=== PATIENT | female | born 2000 | race Two or more races ===

== ENCOUNTER 2019-03-29 16:37 | Inpatient (IN) | payer BC, MEDICAID ==
[~2019-03-29] VITALS: Ht 172.7 cm; Wt 62.6 kg
[2019-03-29 17:40] LABS: BASOPHILS % (AUTO) 0.3 % (0.0-2.0); EOSINOPHILS % (AUTO) 0.8 % (1.0-6.0); HEMATOCRIT 40.4 % (36-46); LYMPHOCYTES # (AUTO) 1.7 K/uL (1.0-4.8); LYMPHOCYTES % (AUTO) 16.5 % (22.0-44.0); MEAN CORPUSCULAR HEMOGLOBIN 31.3 pg (26.0-34.0); MEAN CORPUSCULAR HGB CONC 34.5 G/dL (31.0-37.0); MEAN CORPUSCULAR VOLUME 91 fL (80-100); MONOCYTES # (AUTO) 0.6 K/uL (0.1-1.0); MONOCYTES % (AUTO) 5.9 % (2.0-9.0); NEUTROPHILS # (AUTO) 8.1 K/uL (1.8-7.7); NEUTROPHILS % (AUTO) 76.5 % (40.0-70.0); PLATELET COUNT (AUTO) 285 K/uL (150-450); RED BLOOD CELL COUNT(AUTO) 4.47 MIL/uL (4.00-5.20); RED CELL DISTRIBUTION WIDTH 12.6 % (11.5-14.5)
[2019-03-29 17:57] LABS: ANION GAP 8 mmol/L (8-16); CALCIUM, TOTAL 8.6 mg/dL (8.8-10.5); CARBON DIOXIDE 28 mmol/L (22-29); CHLORIDE 100 mmol/L (98-107); CREATININE 0.65 mg/dL (0.60-1.30); GLOMERULAR FILTR. RATE CALC > 60 mL/min (>60); GLUCOSE,RANDOM 85 mg/dL (70-110); POTASSIUM 4.3 mmol/L (3.5-5.1); SODIUM SERUM 136 mmol/L (136-145); UREA NITROGEN, BLOOD 15 mg/dL (7-18)
[2019-03-29 18:01] LABS: ALANINE AMINOTRANSFERASE 14 U/L (12-78); ALBUMIN 4.1 g/dL (3.4-5.0); ALKALINE PHOSPHATASE 74 U/L (46-116); ASPARTATE AMINOTRANSFERASE 12 U/L (15-37); BILIRUBIN,TOTAL 0.2 mg/dL (0.1-1.0); HCG,QUANTITATIVE < 1 mIU/mL (0-6); TOTAL PROTEIN, SERUM 7.8 g/dL (6.4-8.2)
[2019-03-29 18:02] LABS: ACETAMINOPHEN < 2 mcg/mL (10-30)
[2019-03-29 18:28] LABS: SALICYLATE < 2.8 mg/dL (2.8-20.0)
[2019-03-29] MEDS ORDERED: VENL-68 PO (19:10)
[2019-03-29] MEDS ORDERED: SPIR50 PO (19:10)
[2019-03-29] MEDS ORDERED: CHARCOAL/SORBITOL 50 GM/240 ML SUSPENSION PO ONE (19:15)
[2019-03-29] MEDS ORDERED: PEG 3350/NA SULF,BICARB,CL/KCL 4000 ML SOLUTION PO ONE (19:15)
[2019-03-29] MEDS ORDERED: BUPIVACAINE HCL/PF 0.25% 10 ML VIAL INJ ONE (20:15)
[2019-03-29] MEDS ORDERED: CEPHALEXIN MONOHYDRATE 500 MG CAPSULE PO ONE (21:00)
[2019-03-29] MEDS ORDERED: BACITRACIN 0.9 GM PACKET OINTMENT TP ONE (21:00)
[2019-03-29] MEDS ORDERED: SPIRONOLACTONE 50 MG TABLET PO ONE (21:00)
[2019-03-29 21:09] LABS: AMPHET/METH SCREEN,URINE NEGATIVE (NEGATIVE); BARBITURATE SCREEN, URINE NEGATIVE (NEGATIVE); BENZODIAZEPINES SCREEN,URINE NEGATIVE (NEGATIVE); CANNABINOID SCREEN,URINE NEGATIVE (NEGATIVE); COCAINE SCREEN,URINE NEGATIVE (NEGATIVE); METHADONE SCREEN, URINE NEGATIVE (NEGATIVE); OPIATE SCREEN,URINE NEGATIVE (NEGATIVE); PHENCYCLIDINE SCREEN,URINE NEGATIVE (NEGATIVE)
[2019-03-29] MEDS ORDERED: ZOLPIDEM TARTRATE 10 MG TABLET PO PRN (21:30)
[2019-03-29] MEDS ORDERED: LORazepam 2 MG TABLET PO PRN (21:30)
[2019-03-29] MEDS ORDERED: HALOPERIDOL 5 MG TABLET PO PRN (21:30)
[2019-03-29 21:49] LABS: APPEARANCE,URINE CLEAR (CLEAR); BILIRUBIN,URINE NEGATIVE (NEGATIVE); GLUCOSE, URINE (UA) NEGATIVE (NEGATIVE); KETONES,URINE TRACE mg/dL (NEGATIVE); LEUKOCYTE ESTERASE ,URINE NEGATIVE (NEGATIVE); NITRATE,URINE NEGATIVE (NEGATIVE); OCCULT BLOOD,URINE NEGATIVE (NEGATIVE); PROTEIN,URINE NEGATIVE (NEGATIVE); UROBILINOGEN,URINE 0.2 mg/dL (<=1.0)
[2019-03-30 03:14] VITALS: BP 113/81
[2019-03-30 03:39] VITALS: BP 113/81
[2019-03-30] MEDS ORDERED: INFLUENZA VIRUS VACCINE QVS 2019-20 (3YR+)/PF 60 MCG/0.5 ML SYRINGE IM ONE (05:45)
[2019-03-30 06:33] LABS: CHOL/HDL RATIO 1.9 (3.9-5.7)
[2019-03-30 08:12] VITALS: BP 125/72
[2019-03-30] MEDS ORDERED: ESTR20VI4 IM (10:36)
[2019-03-30] MEDS ORDERED: QUET25TA PO (10:44)
[2019-03-30] MEDS: SPIRONOLACTONE 50 MG TABLET PO SCH ×2 (11:48→17:24)
[2019-03-30] MEDS ORDERED: ESTR-95 PO (14:42)
[2019-03-30] MEDS: ESTRADIOL 1 MG TABLET PO SCH (17:25)
[2019-03-30 19:21] VITALS: BP 109/72
[2019-03-31] MEDS: ESTRADIOL 1 MG TABLET PO SCH ×2 (06:51→12:17)
[2019-03-31] MEDS: SPIRONOLACTONE 50 MG TABLET PO SCH (06:51)
[2019-03-31 06:53] LABS: ACETAMINOPHEN < 2 mcg/mL (10-30); SALICYLATE 0.4 mg/dL (2.8-20.0)
[2019-03-31 10:13] VITALS: BP 131/83
== END 2019-03-31 15:20 | disposition home or self-care (01) | DRG 885 ==
LOC: EMS 16:45 → 3EI 22:35
PROVIDERS: ADMIT Psychiatry & Neurology Psychiatry; ATTEND Psychiatry & Neurology Psychiatry
DX: F25.9 Schizoaffective disorder, unspecified (principal); F32.9 Major depressive disorder, single episode, unspecified; F84.0 Autistic disorder; G44.209 Tension-type headache, unspecified, not intractable; L03.039 Cellulitis of unspecified toe; T43.222A Poisoning by selective serotonin reuptake inhibitors, intentional self-harm, initial encounter; Y92.89 Other specified places as the place of occurrence of the external cause; R00.0 Tachycardia, unspecified
CPT/HCPCS: 10060; 93005; G0480; G0481; J3490

== ENCOUNTER 2020-04-10 12:01 | Emergency (ER) | payer BC, OTHER ==
[~2020-04-10] VITALS: Ht 172.7 cm; Wt 83.6 kg
[~2020-04-10 12:01] MED LIST: SPIR50 PO
[2020-04-10 12:51] LABS: COVID AG,FIA SOURCE NASOPHARYNGEAL
[2020-04-10 13:02] LABS: BASOPHILS % (AUTO) 0.4 % (0.0-2.0); EOSINOPHILS % (AUTO) 0.3 % (1.0-6.0); HEMATOCRIT 37.2 % (36-46); HEMOGLOBIN 12.9 g/dL (12.0-16.0); LYMPHOCYTES # (AUTO) 1.2 K/uL (1.0-4.8); LYMPHOCYTES % (AUTO) 17.1 % (22.0-44.0); MEAN CORPUSCULAR HEMOGLOBIN 31.1 pg (26.0-34.0); MEAN CORPUSCULAR HGB CONC 34.5 G/dL (31.0-37.0); MEAN CORPUSCULAR VOLUME 90 fL (80-100); MONOCYTES # (AUTO) 0.4 K/uL (0.1-1.0); MONOCYTES % (AUTO) 5.8 % (2.0-9.0); NEUTROPHILS # (AUTO) 5.4 K/uL (1.8-7.7); NEUTROPHILS % (AUTO) 76.4 % (40.0-70.0); PLATELET COUNT (AUTO) 250 K/uL (150-450); RED BLOOD CELL COUNT(AUTO) 4.13 MIL/uL (4.00-5.20); RED CELL DISTRIBUTION WIDTH 13.3 % (11.5-14.5)
[2020-04-10 13:03] LABS: AMPHET/METH SCREEN,URINE NEGATIVE (NEGATIVE); BARBITURATE SCREEN, URINE NEGATIVE (NEGATIVE); BENZODIAZEPINES SCREEN,URINE NEGATIVE (NEGATIVE); CANNABINOID SCREEN,URINE NEGATIVE (NEGATIVE); COCAINE SCREEN,URINE NEGATIVE (NEGATIVE); METHADONE SCREEN, URINE NEGATIVE (NEGATIVE); OPIATE SCREEN,URINE NEGATIVE (NEGATIVE)
[2020-04-10 13:04] LABS: PHENCYCLIDINE SCREEN,URINE NEGATIVE (NEGATIVE)
[2020-04-10 13:13] LABS: ANION GAP 4 mmol/L (8-16); CALCIUM, TOTAL 8.7 mg/dL (8.8-10.5); CARBON DIOXIDE 32 mmol/L (22-29); CHLORIDE 101 mmol/L (98-107); CREATININE 0.77 mg/dL (0.60-1.30); GLOMERULAR FILTR. RATE CALC > 60 mL/min (>60); GLUCOSE,RANDOM 105 mg/dL (70-110); SODIUM SERUM 137 mmol/L (136-145); UREA NITROGEN, BLOOD 6 mg/dL (7-18)
[2020-04-10 13:20] LABS: ALANINE AMINOTRANSFERASE 20 U/L (12-78); ALBUMIN 4.2 g/dL (3.4-5.0); ALKALINE PHOSPHATASE 53 U/L (46-116); ASPARTATE AMINOTRANSFERASE 16 U/L (15-37); BILIRUBIN,TOTAL 0.3 mg/dL (0.1-1.0); TOTAL PROTEIN, SERUM 7.6 g/dL (6.4-8.2)
[2020-04-10 16:38] VITALS: BP 119/86
== END 2020-04-10 16:45 | disposition home or self-care (01) ==
LOC: EMS 12:04
DX: F32.9 Major depressive disorder, single episode, unspecified (principal); Z88.8 Allergy status to other drugs, medicaments and biological substances; Z20.828 Contact with and (suspected) exposure to other viral communicable diseases
CPT/HCPCS: 36415; 80053; 80307; 85025; 87426; 99285; G0480

== ENCOUNTER 2020-06-10 15:22 | Inpatient (IN) | payer BC, MEDICAID ==
[~2020-06-10] VITALS: Ht 175.3 cm; Wt 68.4 kg
[2020-06-10] MEDS ORDERED: PROG200C11 PO (15:42)
[2020-06-10] MEDS ORDERED: ESTRADIOL PO (15:42)
[2020-06-10] MEDS ORDERED: SPIR50 PO (15:42)
[2020-06-10] MEDS ORDERED: VENL-53 PO (15:42)
[2020-06-10] MEDS ORDERED: QUET25TA PO (15:42)
[2020-06-10] MEDS ORDERED: FINA-27 PO (15:42)
[2020-06-10 19:17] LABS: COVID AG,FIA SOURCE NASOPHARYNGEAL
[2020-06-10 19:42] LABS: BASOPHILS % (AUTO) 0.4 % (0.0-2.0); EOSINOPHILS % (AUTO) 0.2 % (1.0-6.0); HEMATOCRIT 39.5 % (36-46); HEMOGLOBIN 13.7 g/dL (12.0-16.0); MEAN CORPUSCULAR HEMOGLOBIN 31.2 pg (26.0-34.0); MEAN CORPUSCULAR HGB CONC 34.8 G/dL (31.0-37.0); MEAN CORPUSCULAR VOLUME 90 fL (80-100); MONOCYTES # (AUTO) 0.3 K/uL (0.1-1.0); MONOCYTES % (AUTO) 4.4 % (2.0-9.0); NEUTROPHILS # (AUTO) 5.4 K/uL (1.8-7.7); PLATELET COUNT (AUTO) 255 K/uL (150-450); RED BLOOD CELL COUNT(AUTO) 4.41 MIL/uL (4.00-5.20); RED CELL DISTRIBUTION WIDTH 13.3 % (11.5-14.5)
[2020-06-10 19:57] LABS: ANION GAP 6 mmol/L (8-16); CARBON DIOXIDE 30 mmol/L (22-29); CHLORIDE 101 mmol/L (98-107); CREATININE 0.86 mg/dL (0.60-1.30); GLOMERULAR FILTR. RATE CALC > 60 mL/min (>60); GLUCOSE,RANDOM 85 mg/dL (70-110); POTASSIUM 4.1 mmol/L (3.5-5.1); SODIUM SERUM 137 mmol/L (136-145); UREA NITROGEN, BLOOD 10 mg/dL (7-18)
[2020-06-10 20:04] LABS: ALANINE AMINOTRANSFERASE 23 U/L (12-78); ALBUMIN 4.6 g/dL (3.4-5.0); ALKALINE PHOSPHATASE 64 U/L (46-116); ASPARTATE AMINOTRANSFERASE 24 U/L (15-37); BILIRUBIN,TOTAL 0.4 mg/dL (0.1-1.0); TOTAL PROTEIN, SERUM 8.5 g/dL (6.4-8.2)
[2020-06-10 20:45] LABS: AMPHET/METH SCREEN,URINE NEGATIVE (NEGATIVE); BARBITURATE SCREEN, URINE NEGATIVE (NEGATIVE); BENZODIAZEPINES SCREEN,URINE NEGATIVE (NEGATIVE); CANNABINOID SCREEN,URINE NEGATIVE (NEGATIVE); COCAINE SCREEN,URINE NEGATIVE (NEGATIVE); METHADONE SCREEN, URINE NEGATIVE (NEGATIVE); OPIATE SCREEN,URINE NEGATIVE (NEGATIVE)
[2020-06-10 20:47] LABS: PHENCYCLIDINE SCREEN,URINE NEGATIVE (NEGATIVE)
[2020-06-10] MEDS ORDERED: QUEtiapine FUMARATE 25 MG TABLET PO ONE (21:15)
[2020-06-11 05:52] VITALS: BP 118/90
[2020-06-11] MEDS ORDERED: MAG HYDROX/AL HYDROX/SIMETH ES 30 ML SUSPENSION UDCUP PO PRN (08:15)
[2020-06-11] MEDS ORDERED: TUBERCULIN, PURIFIED PROTEIN DERIVATIVE 5 TU/0.1 ML SYRINGE ID ONE (08:15)
[2020-06-11] MEDS ORDERED: ZOLPIDEM TARTRATE 10 MG TABLET PO PRN (08:15)
[2020-06-11] MEDS ORDERED: LOPERAMIDE HCL 2 MG CAPSULE PO PRN (08:15)
[2020-06-11] MEDS ORDERED: HydrOXYzine PAMOATE 50 MG CAPSULE PO PRN (08:15)
[2020-06-11] MEDS ORDERED: ACETAMINOPHEN 325 MG TABLET PO PRN (08:15)
[2020-06-11] MEDS ORDERED: LORazepam 2 MG TABLET PO PRN (08:15)
[2020-06-11] MEDS ORDERED: MAGNESIUM HYDROXIDE SUSPENSION 30 ML UDCUP PO PRN (08:15)
[2020-06-11] MEDS ORDERED: OLANZapine 5 MG RAPDIS TABLET PO PRN (08:15)
[2020-06-11] MEDS ORDERED: PROMETHAZINE HCL 25 MG TABLET PO PRN (08:15)
[2020-06-11] MEDS ORDERED: GuaiFENesin/D-METHORPHAN [SUGAR-FREE] 200-20MG/10 ML SYRUP UDCUP PO PRN (08:15)
[2020-06-11] MEDS: FOLIC ACID 1 MG TABLET PO SCH (08:53)
[2020-06-11] MEDS: MULTIVITAMINS WITH MINERALS, THERAPEUTIC TABLET PO SCH (08:53)
[2020-06-11] MEDS: OMEGA-3/DHA/EPA/FISH OIL 1,000 MG CAPSULE PO SCH (08:53)
[2020-06-11] MEDS: NALTREXONE HCL 50 MG TABLET PO SCH (08:53)
[2020-06-11] MEDS: THIAMINE 100 MG TABLET PO SCH ×2 (08:53→17:08)
[2020-06-11] MEDS ORDERED: ESTR2TAB5 PO (11:12)
[2020-06-11] MEDS: FINASTERIDE 5 MG TABLET PO SCH (12:50)
[2020-06-11] MEDS: SPIRONOLACTONE 50 MG TABLET PO SCH ×2 (12:50→17:18)
[2020-06-11] MEDS: ESTRADIOL 1 MG TABLET PO SCH ×2 (12:50→17:08)
[2020-06-11] MEDS: OLANZapine 5 MG RAPDIS TABLET PO SCH (20:26)
[2020-06-11] MEDS: MELATONIN 5 MG TABLET PO SCH (20:26)
[2020-06-11] MEDS: PROGESTERONE, MICRONIZED 100 MG CAPSULE PO SCH (20:26)
[2020-06-11] MEDS: DIVALPROEX SODIUM 250 MG ER TABLET PO SCH (20:27)
[2020-06-11] MEDS ORDERED: PROGESTERONE 50 MG/ML IM SCH ×2 (21:00)
[2020-06-12 01:25] VITALS: BP 110/84
[2020-06-12] MEDS: ESTRADIOL 1 MG TABLET PO SCH ×2 (08:59→17:28)
[2020-06-12] MEDS: NALTREXONE HCL 50 MG TABLET PO SCH (08:59)
[2020-06-12] MEDS: FOLIC ACID 1 MG TABLET PO SCH (08:59)
[2020-06-12] MEDS: THIAMINE 100 MG TABLET PO SCH ×2 (08:59→17:28)
[2020-06-12] MEDS: FINASTERIDE 5 MG TABLET PO SCH (08:59)
[2020-06-12] MEDS: SPIRONOLACTONE 50 MG TABLET PO SCH ×2 (08:59→17:28)
[2020-06-12] MEDS: OMEGA-3/DHA/EPA/FISH OIL 1,000 MG CAPSULE PO SCH (08:59)
[2020-06-12] MEDS: MULTIVITAMINS WITH MINERALS, THERAPEUTIC TABLET PO SCH (08:59)
[2020-06-12] MEDS ORDERED: ZOLPIDEM TARTRATE 5 MG TABLET PO PRN (14:15)
[2020-06-12 16:11] VITALS: BP 111/54
[2020-06-12] MEDS ORDERED: LORazepam 1 MG TABLET PO PRN (16:15)
[2020-06-12] MEDS: PROGESTERONE, MICRONIZED 100 MG CAPSULE PO SCH (20:32)
[2020-06-12] MEDS: DIVALPROEX SODIUM 250 MG ER TABLET PO SCH (20:32)
[2020-06-12] MEDS: OLANZapine 5 MG RAPDIS TABLET PO SCH (20:32)
[2020-06-12] MEDS: MELATONIN 5 MG TABLET PO SCH (20:33)
[2020-06-13 01:17] VITALS: BP 104/66
[2020-06-13 08:15] VITALS: BP 118/69
[2020-06-13] MEDS: ESTRADIOL 1 MG TABLET PO SCH ×2 (08:37→16:35)
[2020-06-13] MEDS: SPIRONOLACTONE 50 MG TABLET PO SCH ×2 (08:37→16:35)
[2020-06-13] MEDS: FINASTERIDE 5 MG TABLET PO SCH (08:37)
[2020-06-13] MEDS: THIAMINE 100 MG TABLET PO SCH ×2 (08:38→16:35)
[2020-06-13] MEDS: FOLIC ACID 1 MG TABLET PO SCH (08:38)
[2020-06-13] MEDS: MULTIVITAMINS WITH MINERALS, THERAPEUTIC TABLET PO SCH (08:38)
[2020-06-13] MEDS: NALTREXONE HCL 50 MG TABLET PO SCH (08:38)
[2020-06-13] MEDS: OMEGA-3/DHA/EPA/FISH OIL 1,000 MG CAPSULE PO SCH (08:38)
[2020-06-13 09:53] LABS: CHOL/HDL RATIO 2.1 (3.9-5.7); FREE T4 (FREE THYROXINE) 1.13 ng/dL (0.76-1.46); THYROID STIMULATING HORMONE 2.4 uIU/mL (0.36-3.74)
[2020-06-13] MEDS ORDERED: DIVA-85 PO (13:30)
[2020-06-13] MEDS ORDERED: NALT50TA PO (13:30)
[2020-06-13] MEDS ORDERED: MELA5TAB3 PO (13:30)
[2020-06-13] MEDS ORDERED: OMEG-135 PO (13:30)
[2020-06-13] MEDS ORDERED: OLAN5TAB30 PO (13:30)
[2020-06-13 16:08] VITALS: BP 123/61
[2020-06-13] MEDS: DIVALPROEX SODIUM 250 MG ER TABLET PO SCH (20:36)
[2020-06-13] MEDS: OLANZapine 5 MG RAPDIS TABLET PO SCH (20:37)
[2020-06-13] MEDS: MELATONIN 5 MG TABLET PO SCH (20:37)
[2020-06-13] MEDS: PROGESTERONE, MICRONIZED 100 MG CAPSULE PO SCH (20:37)
[2020-06-14 00:41] VITALS: BP 120/72
[2020-06-14 08:19] VITALS: BP 124/83
[2020-06-14] MEDS: FINASTERIDE 5 MG TABLET PO SCH (08:40)
[2020-06-14] MEDS: THIAMINE 100 MG TABLET PO SCH ×2 (08:40→15:55)
[2020-06-14] MEDS: NALTREXONE HCL 50 MG TABLET PO SCH (08:40)
[2020-06-14] MEDS: OMEGA-3/DHA/EPA/FISH OIL 1,000 MG CAPSULE PO SCH (08:40)
[2020-06-14] MEDS: FOLIC ACID 1 MG TABLET PO SCH (08:40)
[2020-06-14] MEDS: ESTRADIOL 1 MG TABLET PO SCH ×2 (08:40→15:55)
[2020-06-14] MEDS: MULTIVITAMINS WITH MINERALS, THERAPEUTIC TABLET PO SCH (08:40)
[2020-06-14] MEDS: SPIRONOLACTONE 50 MG TABLET PO SCH ×2 (08:41→15:55)
[2020-06-14 16:06] VITALS: BP 124/76
== END 2020-06-14 17:15 | disposition home or self-care (01) | DRG 885 ==
LOC: EMS 15:22 → B3A 22:00
PROVIDERS: ADMIT Psychiatry & Neurology Psychiatry; ATTEND Psychiatry & Neurology Psychiatry
DX: F25.9 Schizoaffective disorder, unspecified (principal); F84.0 Autistic disorder; F64.9 Gender identity disorder, unspecified; Z20.822 Contact with and (suspected) exposure to COVID-19; Z88.8 Allergy status to other drugs, medicaments and biological substances
CPT/HCPCS: 83036; 84439; 84443; 86592; 87426; 99285; A9575; G0480; J2675

== ENCOUNTER 2023-04-02 18:50 | Emergency (ER) | payer MEDICARE, BC, MEDICAID ==
[~2023-04-02] VITALS: Ht 175.3 cm; Wt 116.4 kg
[~2023-04-02 18:50] MED LIST changes: +DIVA-85 PO; +ESTR2TAB5 PO; +FINA-27 PO; +MELA5TAB40 PO; +NALT50TA PO; +OLAN5TAB30 PO; +OMEG-135 PO; +PROG200C11 PO; -SPIR50 PO; +SPIR50TA27 PO
[2023-04-02 18:57] VITALS: TEMP 98.2
[2023-04-02] MEDS ORDERED: FLUO20CA36 PO ×2 (19:02→21:50)
[2023-04-02] MEDS ORDERED: SPIR100T5 PO (19:02)
[2023-04-02] MEDS ORDERED: HYDR50CA6 PO (19:02)
[2023-04-02 19:20] LABS: GLUCOMETER DEV NAME(LOC) ERT.5; GLUCOSE,POINT OF CARE 80 MG/DL (70-110)
[2023-04-02] MEDS ORDERED: QUET100T PO (21:50)
[2023-04-02] MEDS ORDERED: DIVA500T53 PO (21:50)
[2023-04-02 22:00] VITALS: BP 154/90; PULSE 88; RESP 16
[2023-04-02] MEDS ORDERED: QUEtiapine FUMARATE 100 MG TABLET PO ONE (22:00)
[2023-04-02] MEDS ORDERED: LORazepam 1 MG TABLET PO ONE (22:00)
== END 2023-04-02 22:35 | disposition home or self-care (01) ==
LOC: EMS 19:34
DX: F31.9 Bipolar disorder, unspecified (principal); F41.9 Anxiety disorder, unspecified
CPT/HCPCS: 82962; 99283

== ENCOUNTER 2025-03-17 20:43 | Inpatient (IN) | payer MEDICARE, BC, MEDICAID ==
[~2025-03-17] VITALS: Ht 175.3 cm; Wt 94.0 kg
[~2025-03-17 20:43] MED LIST changes: +DIVA-153 PO; -DIVA-85 PO; -ESTR2TAB5 PO; +FLUO-418 PO; -MELA5TAB40 PO; -NALT50TA PO; +OLAN10TA74 PO; -OLAN5TAB30 PO; -OMEG-135 PO; -PROG200C11 PO; +SPIR50TA PO; -SPIR50TA27 PO; +[UNRECOGNIZED DRUG - CODE] TD
[2025-03-17 21:19] VITALS: O2SAT 98
[2025-03-17 21:25] LABS: COVID AG,FIA SOURCE NASAL SWAB
[2025-03-17 21:27] LABS: PLATELET COUNT (AUTO) 271 K/uL (150-450); RED BLOOD CELL COUNT(AUTO) 4.30 MIL/uL (4.00-5.20); RED CELL DISTRIBUTION WIDTH 14.2 % (11.5-14.5); WHITE BLOOD COUNT (AUTO) 9.3 K/uL (4.5-11.0)
[2025-03-17 21:34] LABS: CALCIUM, TOTAL 8.6 mg/dL (8.8-10.5); CREATININE 0.82 mg/dL (0.60-1.30); GLOMERULAR FILTR. RATE CALC > 60 mL/min (>60); GLUCOSE,RANDOM 88 mg/dL (70-110); SODIUM SERUM 136 mmol/L (136-145); UREA NITROGEN, BLOOD 9 mg/dL (7-18)
[2025-03-17 21:42] LABS: SARS-COV2 (COVID) ANTIGEN,FIA Negative (Negative)
[2025-03-18] MEDS ORDERED: PETROLATUM,WHITE 28 GM JELLY TP PRN (01:00)
[2025-03-18] MEDS ORDERED: ONDANSETRON 4 MG TABLET PO PRN (01:00)
[2025-03-18] MEDS ORDERED: MAG HYDROX/ALUMINUM HYD/SIMETH ES 30 ML SUSPENSION UDCUP PO PRN (01:00)
[2025-03-18] MEDS ORDERED: DOCUSATE SODIUM 100 MG CAPSULE PO PRN (01:00)
[2025-03-18] MEDS ORDERED: MAGNESIUM HYDROXIDE SUSPENSION 30 ML UDCUP PO PRN (01:00)
[2025-03-18] MEDS ORDERED: ALBUTEROL SULFATE HFA 90 MCG/PUFF 8 GM INHALER IH PRN (01:00)
[2025-03-18] MEDS ORDERED: LOPERAMIDE HCL 2 MG CAPSULE PO PRN (01:00)
[2025-03-18] MEDS ORDERED: ACETAMINOPHEN 325 MG TABLET PO PRN (01:00)
[2025-03-18] MEDS ORDERED: IBUPROFEN 400 MG TABLET PO PRN (01:00)
[2025-03-18] MEDS ORDERED: GuaiFENesin/D-METHORPHAN [SUGAR-FREE] 200-20MG/10 ML SYRUP UDCUP PO PRN (01:00)
[2025-03-18] MEDS ORDERED: NICOTINE 14 MG/24 HOUR PATCH TD PRN (01:00)
[2025-03-18 01:57] VITALS: BP 127/84; PULSE 80; RESP 18; TEMP 98.2; O2SAT 99
[2025-03-18] MEDS: SPIRONOLACTONE 50 MG TABLET PO SCH (08:04)
[2025-03-18 09:56] VITALS: BP 122/96; PULSE 98; RESP 18; TEMP 97.6; O2SAT 98
[2025-03-18] MEDS: DIVALPROEX SODIUM 500 MG ER TABLET PO SCH (16:35)
[2025-03-18 20:21] VITALS: BP 105/65; PULSE 97; RESP 18; TEMP 97.3; O2SAT 100
[2025-03-18] MEDS: ZOLPIDEM TARTRATE 10 MG TABLET PO PRN (21:18)
[2025-03-19 08:33] LABS: PLATELET COUNT (AUTO) 222 K/uL (150-450); RED BLOOD CELL COUNT(AUTO) 4.35 MIL/uL (4.00-5.20); RED CELL DISTRIBUTION WIDTH 13.7 % (11.5-14.5); WHITE BLOOD COUNT (AUTO) 6.9 K/uL (4.5-11.0)
[2025-03-19 09:06] LABS: ASPARTATE AMINOTRANSFERASE 16 U/L (15-37); CALCIUM, TOTAL 7.9 mg/dL (8.8-10.5); CREATININE 1.02 mg/dL (0.60-1.30); GLOMERULAR FILTR. RATE CALC > 60 mL/min (>60); GLUCOSE,RANDOM 119 mg/dL (70-110); SODIUM SERUM 138 mmol/L (136-145); TOTAL PROTEIN, SERUM 6.8 g/dL (6.4-8.2); UREA NITROGEN, BLOOD 12 mg/dL (7-18)
[2025-03-19 09:07] LABS: CHOL/HDL RATIO 2.9 (3.9-5.7); LDL CHOL (CALC.) 48.0 mg/dL (0-130)
[2025-03-19 10:13] VITALS: BP 126/84; PULSE 98; RESP 17; TEMP 98.2; O2SAT 98
[2025-03-19 20:03] VITALS: BP 111/78; PULSE 63; RESP 16; TEMP 97.6; O2SAT 100
[2025-03-20 08:59] VITALS: BP 122/80; PULSE 85; RESP 18; TEMP 97.7; O2SAT 97
== END 2025-03-20 17:17 | disposition home or self-care (01) | DRG 885 ==
LOC: EMS 20:43 → 3EC 22:33
PROVIDERS: ADMIT Psychiatry & Neurology Child & Adolescent Psychiatry; ATTEND Psychiatry & Neurology Child & Adolescent Psychiatry
PROC: GZ58ZZZ Individual Psychotherapy, Cognitive-Behavioral (ICD-10-PCS; principal; 2025-03-18)
PROC: GZ56ZZZ Individual Psychotherapy, Supportive (ICD-10-PCS; 2025-03-18)
DX: F25.1 Schizoaffective disorder, depressive type (principal); F32.A Depression, unspecified; I10 Essential (primary) hypertension; G47.00 Insomnia, unspecified; F41.9 Anxiety disorder, unspecified; F64.0 Transsexualism; Z79.890 Hormone replacement therapy
CPT/HCPCS: 80048; 80053; 80061; 80164; 83036; 84443; 85025; 99285; G0480